=== PATIENT | male | born 1970 | race Two or more races ===

== ENCOUNTER 2024-11-09 15:28 | Outpatient (CLI) | payer OTHER | END 2024-11-09 15:37 | disposition home or self-care (01) | LOC: SONOGRAMA 15:28 | PROVIDERS: ATTEND Pathology Anatomic Pathology & Clinical Pathology | DX: C76.8 Malignant neoplasm of other specified ill-defined sites (principal); C77.0 Secondary and unspecified malignant neoplasm of lymph nodes of head, face and neck; R59.0 Localized enlarged lymph nodes ==